=== PATIENT | female | born 1945 | race Caucasian/White ===

== ENCOUNTER → 2017-02-04 | Outpatient (CLI) | payer MEDICARE ==
[2017-02-04 07:56] LABS: BASOPHILS % (AUTO) 1 % (0-2); EOSINOPHILS # (AUTO) 0.3 10^3uL; EOSINOPHILS % (AUTO) 4 % (0-4); LYMPHOCYTES # (AUTO) 2.4 X10^3; MEAN CORPUSCULAR HEMOGLOBIN 28.4 PG (26.0-34.0); MEAN CORPUSCULAR HGB CONC 33.4 g/dL (31.0-37.0); MEAN CORPUSCULAR VOLUME 85 FL (80-100); MEAN PLATELET VOLUME 10.7 FL (6.0-9.5); MONOCYTES # (AUTO) 0.6 X10^3; MONOCYTES % (AUTO) 9 % (3-11); NEUTROPHILS # (AUTO) 3.3 X10^3; NEUTROPHILS % (AUTO) 50 % (51-67); PLATELET COUNT 233 10^3uL (150-450); WHITE BLOOD COUNT 6.69 10^3uL (4.0-11.0)
[2017-02-04 08:10] LABS: ANION GAP 14.7 MEQ/L (3-15); CALCULATED IONIZED CALCIUM 4.2 mg/dL (3.8-4.6); TOTAL PROTEIN 6.8 g/dL (6.4-8.5)
== END ==
LOC: LAB 07:06
PROVIDERS: ATTEND Internal Medicine
DX: Z00.00 Encounter for general adult medical examination without abnormal findings (principal); E78.4 Other hyperlipidemia; E03.8 Other specified hypothyroidism; K21.9 Gastro-esophageal reflux disease without esophagitis; G25.0 Essential tremor
CPT/HCPCS: 36415; 80053; 80061; 84443; 85025

== ENCOUNTER → 2017-02-18 | Outpatient (CLI) | payer MEDICARE ==
--- NOTE | 2017-02-18 12:03 | Diagnostic Imaging Report ---
INDICATION: 71-year-old post menopausal female presenting for screening osteoporosis. COMPARISON: 10/08/2011. TECHNIQUE: DEXA of the lumbar spine and bilateral hips was performed. FINDINGS: The L1-L4 vertebrae were used for assessment of the lumbar spine. The bone mineral density for the total lumbar spine is 1.426 g/cm2, and the T score is 2.1, and Z-score is 2.6 . The left femoral neck has a bone density of 0.913 g/cm2, and the T score is -0.6, and Z-score is 0.2 . The right femoral neck has a bone density of 0.882 g/cm2, and the T score is -0.8, and Z-score is -0.1 . There are degenerative sclerotic changes in the lumbar spine which falsely elevate assessment of bone mineral density in the lumbar spine. There has not been a statistically significant decrease in the bone mineral density since the prior examination. IMPRESSION: Normal bone mineral density. Dictated by: Dictated on workstation # [id number]
--- NOTE | 2017-02-18 13:45 | Diagnostic Imaging Report ---
CLINICAL INDICATION: Recheck stenosis. COMPARISON: Ultrasound of the carotids dated 10/21/2014. EXAM: Real-time carotid Doppler duplex imaging is performed bilaterally. Peak systolic velocity, ICA/CCA peak systolic ratio, spectral analysis, and vascular morphology are studied. FINDINGS: ARTERY VELOCITY Right Left CCA 1.02 m/s 1.07 m/s ICA 1.05 m/s 1.16 m/s ECA 1.03 m/s 1.11 m/s ICA/CCA 1.02 1.08 VERT ART Antegrade Antegrade There is bilateral proximal carotid artery atherosclerotic plaque (right side more than the left). There is roughly 55 % stenosis of the right ICA bulb region, which has minimally progressed. Given the differences in technique, the remainder of the bilateral carotid artery atherosclerotic disease has not significantly changed on grayscale imaging compared to the prior study. IMPRESSION: 1: There is slight progression of the right proximal ICA atherosclerotic disease with now roughly 55% stenosis compared to the prior study of less than 50%. 2: Otherwise, the remainder of the bilateral carotid arteries show no significant grayscale or Doppler evidence of significant vascular stenosis. Dictated by: Dictated on workstation # [id number]
--- NOTE | 2017-02-19 18:44 | Diagnostic Imaging Report ---
DIG MATTHEW BILAT SCREEN W CAD COMPARISON: 02/01/2015 INDICATION: Screening mammography. TECHNIQUE: Digital screening mammography was obtained with a computer-aided detection (CAD) system. FINDINGS: There are scattered fibroglandular densities. Stable benign subcentimeter isodense lymph node in the left axillary tail. No new dominant mass, suspicious microcalcifications or architectural distortion to suggest malignancy. IMPRESSION: Stable mammogram without evidence of malignancy. Followup screening mammogram in 12 months is recommended. ACR BI-RADS Category 2: Benign findings. Result letter will be mailed to the patient. Note: At least 10% of breast cancer is not imaged by mammography. Dictated by: Dictated on workstation # [id number]
== END ==
LOC: RAD 09:54
PROVIDERS: ATTEND Internal Medicine
DX: Z12.31 Encounter for screening mammogram for malignant neoplasm of breast (principal); Z78.0 Asymptomatic menopausal state; I65.23 Occlusion and stenosis of bilateral carotid arteries; Z11.59 Encounter for screening for other viral diseases
CPT/HCPCS: 36415; 77080; 86803; 93880; G0202